=== PATIENT | male | born 1965 | race African-American/Black ===

== ENCOUNTER 2021-03-14 10:38 | Emergency (ER) | payer MEDICARE, MEDICAID ==
[2021-03-14] MEDS ORDERED: Cefepime 1 GM VIAL ONE (13:59)
== END 2021-03-14 12:55 | disposition home or self-care (01) ==
LOC: CSHERS 10:38
DX: I12.0 Hypertensive chronic kidney disease with stage 5 chronic kidney disease or end stage renal disease (principal); N18.6 End stage renal disease; E11.22 Type 2 diabetes mellitus with diabetic chronic kidney disease; R78.81 Bacteremia; D63.1 Anemia in chronic kidney disease; Z79.899 Other long term (current) drug therapy
CPT/HCPCS: 99283; J0692